=== PATIENT | male | born 1940 | race Caucasian/White ===

== ENCOUNTER 2022-02-28 18:56 | Emergency (ER) | payer MEDICARE ==
[~2022-02-28 18:56] MED LIST: Iopamidol 300 61% 100 ML VIAL FS ONE
[2022-02-28] MEDS ORDERED: Famotidine/PF 20 mg/2ml Vial ONE (20:17)
[2022-02-28] MEDS ORDERED: Ondansetron PF 4 MG/2 ML Vial ONE (20:17)
[2022-02-28] MEDS ORDERED: methylPREDNISolone Sod Succ 40 MG VIAL ONE (20:17)
[2022-02-28] MEDS ORDERED: diphenhydrAMINE 50 MG/ML VIAL ONE (20:17)
[2022-02-28] MEDS ORDERED: Morphine 4 MG/ML VIAL ONE (20:17)
[2022-02-28 20:31] LABS: #Eosinphils 0.1 10x3/uL (0.0-0.5); #Monocytes 1.1 10x3/uL (0.0-1.1); %Basophils 0.3 % (0.0-2.0); %Eosinophils 1.1 % (0.0-6.0); %Lymphocytes 13.1 % (18.0-47.0); %Monocytes 9.4 % (0.0-10.0); %Neutrophils 75.8 % (40.0-75.0); Hemoglobin 13.2 g/dL (13.5-17.5); Mean Corpuscular HGB CONC 34.1 g/dL (32.0-36.0); Mean Corpuscular Hemoglobin 31.2 pg (27.0-33.0); Mean Corpuscular Volume 91.5 fl (81.2-95.1); Mean Platelet Volume 9.8 fl (7.4-10.4); Platelet Count 223 10x3/uL (150-450); RBC Distribution Width 12.9 % (11.5-14.5); Red Blood Cell (RBC) Count 4.23 10x6/uL (4.32-5.72); White Blood Cell (WBC) Count 11.9 10x3/uL (3.5-10.5)
[2022-02-28 20:34] LABS: ALT (SGPT) 17 U/L (8-55); AST (SGOT) 14 U/L (5-34); Albumin 3.8 g/dL (3.4-4.8); Alkaline Phosphatase 56 U/L (40-110); Anion Gap 14 mmol/L (10-20); BUN (Urea Nitrogen) 17 mg/dL (8.4-25.7); Bilirubin, Total 0.7 mg/dL (0.2-1.2); Calc. Creatinine Clearance 0 mL/min (70-130); Calcium 9.2 mg/dL (7.8-10.44); Carbon Dioxide 24 mmol/L (23-31); Chloride 103 mmol/L (98-107); Estimated GFR 46; Globulin 3.1 g/dL (2.4-3.5); Glucose 124 mg/dL (83-110); Lipase 23 U/L (8-78); Potassium 3.9 mmol/L (3.5-5.1); Protein, Total 6.9 g/dL (5.8-8.1); Sodium 137 mmol/L (136-145)
[2022-02-28] MEDS ORDERED: Amoxicillin/Potassium Clav 875 MG TAB ONE (22:20)
== END 2022-02-28 22:26 | disposition home or self-care (01) ==
LOC: CSHERS 18:56
DX: K57.92 Diverticulitis of intestine, part unspecified, without perforation or abscess without bleeding (principal); E78.5 Hyperlipidemia, unspecified; I10 Essential (primary) hypertension; K21.9 Gastro-esophageal reflux disease without esophagitis; Z79.899 Other long term (current) drug therapy
CPT/HCPCS: 74177; 80053; 83690; 85025; 96361; 96374; 96375; J1200; J2270; J2405; J2920; Q9967; S0028

== ENCOUNTER 2023-10-24 07:13 | Emergency (ER) | payer MEDICARE ==
[2023-10-24] MEDS ORDERED: Ondansetron PF 4 MG/2 ML Vial ONE (07:41)
[2023-10-24] MEDS ORDERED: diphenhydrAMINE 50 MG/ML VIAL ONE (07:41)
[2023-10-24] MEDS ORDERED: Morphine 4 MG/ML VIAL ONE (07:41)
[2023-10-24] MEDS ORDERED: Famotidine/PF 20 mg/2ml Vial ONE (07:42)
[2023-10-24] MEDS ORDERED: methylPREDNISolone Sod Succ 40 MG VIAL ONE (07:42)
[2023-10-24 07:56] LABS: #Basophils 0.02 10x3/uL (0.0-0.2); #Eosinphils 0.18 10x3/uL (0.0-0.5); #Neutrophils 4.56 10x3/uL (1.5-8.4); %Basophils 0.3 % (0.0-2.0); %Eosinophils 2.5 % (0.0-6.0); %Lymphocytes 26.1 % (18.0-47.0); %Neutrophils 63.8 % (40.0-75.0); Hematocrit 39.2 % (38.8-50.0); Hemoglobin 13.7 g/dL (13.5-17.5); Mean Corpuscular HGB CONC 34.9 g/dL (32.0-36.0); Mean Corpuscular Hemoglobin 31.8 pg (27.0-33.0); Mean Platelet Volume 10.4 fL (7.4-10.4); Platelet Count 190 10x3/uL (150-450); RBC Distribution Width 12.8 % (11.5-14.5); Red Blood Cell (RBC) Count 4.31 10x6/uL (4.32-5.72); White Blood Cell (WBC) Count 7.1 10x3/uL (3.5-10.5)
[2023-10-24 08:07] LABS: ALT (SGPT) 20 U/L (8-55); AST (SGOT) 18 U/L (5-34); Albumin 3.8 g/dL (3.4-4.8); Anion Gap 16 mmol/L (10-20); BUN (Urea Nitrogen) 29 mg/dL (8.4-25.7); Bilirubin, Total 0.3 mg/dL (0.2-1.2); Calc. Creatinine Clearance 0 mL/min (70-130); Calcium 9.2 mg/dL (7.8-10.44); Carbon Dioxide 20 mmol/L (23-31); Chloride 105 mmol/L (98-107); Estimated GFR 42; Globulin 3.3 g/dL (2.4-3.5); Glucose 111 mg/dL (83-110); Lipase 40 U/L (8-78); Potassium 3.9 mmol/L (3.5-5.1); Protein, Total 7.1 g/dL (5.8-8.1); Sodium 137 mmol/L (136-145)
[2023-10-24 08:44] LABS: Alkaline Phosphatase 80 U/L (40-110)
[2023-10-24 09:27] LABS: Troponin I 0.019 ng/mL (< 0.028)
[2023-10-24 09:33] LABS: Bilirubin Neg (Negative); Blood, Urine Negative (Negative); Clarity Clear (Clear); Glucose, Urine (Dipstick) Normal (Negative); Ketone, Urine Negative (Negative); Leukocyte Negative (Negative); Nitrite Negative (Negative); Protein, Urine (Dipstick) Negative (Neg-Trace); Urobilinogen Normal mg/dL (Less than 2)
[2023-10-24 09:58] LABS: Bacteria/HPF None Seen HPF (None Seen); CAUTI Indications for Culture Pelvic or flank pain; RBC/HPF None Seen HPF (0-3); Squamous Epithelial 0-3 HPF (0-3); WBC/HPF 0-3 HPF (0-3)
[2023-10-24 09:59] LABS: Urine Culture Reflex No No
[2023-10-24] MEDS ORDERED: Iopamidol 300 61% 100 ML VIAL FS ONE (10:46)
== END 2023-10-24 10:05 | disposition home or self-care (01) ==
LOC: CSHERS 07:13
DX: K57.92 Diverticulitis of intestine, part unspecified, without perforation or abscess without bleeding (principal); N28.89 Other specified disorders of kidney and ureter; K21.9 Gastro-esophageal reflux disease without esophagitis; E78.5 Hyperlipidemia, unspecified; I10 Essential (primary) hypertension; Z55.6 Problems related to health literacy
CPT/HCPCS: 71045; 74177; 81001; 83690; 84484; 93005; J1200; J2270; J2405; J2920; Q9967; S0028; 80053; 84443; 85025; 93010; 96374; 96375

== ENCOUNTER 2024-02-27 12:37 | Emergency (ER) | payer MEDICARE | END 2024-02-27 14:55 | disposition home or self-care (01) | LOC: CSHERS 12:37 | DX: M25.422 Effusion, left elbow (principal); I10 Essential (primary) hypertension; Z55.0 Illiteracy and low-level literacy; X50.0XXA Overexertion from strenuous movement or load, initial encounter | CPT/HCPCS: 99283 ==